=== PATIENT | male | born 1950 | race Caucasian/White ===

== ENCOUNTER → 2017-06-13 | Outpatient (CLI) | payer MEDICARE, BC ==
[2014-05-07 15:30] VITALS: BP 164/88
[~2017-06-13] MED LIST: GLUCOS-AMINE500 MG PO; MULTIPLE VITAMI1 CAP PO; VITAMIN C500 MG PO
== END ==
LOC: LAB 08:00
DX: R68.89 Other general symptoms and signs (principal)

== ENCOUNTER → 2017-07-04 | Outpatient (CLI) | payer MEDICARE, BC ==
[2014-05-07 15:30] VITALS: BP 164/88
[2017-07-04 07:27] LABS: EOS # 0.2 (0.04-0.40); EOS % 3.9 % (0.0-4.0); HEMATOCRIT 42.7 % (42.0-52.0); HEMOGLOBIN 14.3 g/dL (13.5-18.0); LYMPH# 1.6 (1.50-4.00); MEAN CELL VOLUME 88 fl (78-100); MEAN CORPUSCULAR HEMOGLOBIN 30 pg (27-31); MEAN CORPUSCULAR HGB CONC 34 g/dL (33-37); MEAN PLATELET VOLUME 10.5 fl (7.4-10.4); MONO # 0.5 (0.20-0.80); NEU # 2.7 (1.40-6.50); PLATELET COUNT 213 K/mm3 (130-400); RED BLOOD COUNT 4.83 M/mm3 (4.20-5.60); WHITE BLOOD COUNT 5.1 K/mm3 (4.8-10.8)
[2017-07-04 07:44] LABS: ALBUMIN 3.9 g/dL (3.5-5.0); BUN/CREATININE RATIO 17.7 (6.0-26.0); CALCIUM 8.6 mg/dL (8.4-10.2); POTASSIUM 4.3 mmol/L (3.6-5.0); TOTAL BILIRUBIN 0.4 mg/dL (0.2-1.3); TOTAL PROTEIN 7.1 g/dL (6.3-8.2)
== END ==
LOC: LAB 07:14
PROVIDERS: Nurse Practitioner Family
DX: Z12.5 Encounter for screening for malignant neoplasm of prostate (principal); I10 Essential (primary) hypertension; Z00.00 Encounter for general adult medical examination without abnormal findings; Z13.220 Encounter for screening for lipoid disorders

== ENCOUNTER → 2018-05-30 | Outpatient (CLI) | payer MEDICARE, BC ==
[~2018-05-30] VITALS: Ht 180.3 cm; Wt 104.1 kg
[~2018-05-30] MED LIST changes: +PRINIVIL10 M1 PO
[2018-05-30 09:59] LABS: EOS # 0.1 (0.04-0.40); EOS % 2.5 % (0.0-4.0); HEMATOCRIT 43.3 % (42.0-52.0); HEMOGLOBIN 14.6 g/dL (13.5-18.0); LYMPH# 1.6 (1.50-4.00); MEAN CELL VOLUME 90 fl (78-100); MEAN CORPUSCULAR HEMOGLOBIN 30 pg (27-31); MEAN CORPUSCULAR HGB CONC 34 g/dL (33-37); MEAN PLATELET VOLUME 10.7 fl (7.4-10.4); MONO # 0.5 (0.20-0.80); NEU # 3.3 (1.40-6.50); PLATELET COUNT 226 K/mm3 (130-400); RED BLOOD COUNT 4.83 M/mm3 (4.20-5.60); RED CELL DISTRIBUTION WIDTH 12.7 % (11.5-14.5); WHITE BLOOD COUNT 5.6 K/mm3 (4.8-10.8)
[2018-05-30 10:06] VITALS: BP 126/78
[2018-05-30 10:27] LABS: ALBUMIN 4.4 g/dL (3.5-5.0); CALCIUM 9.4 mg/dL (8.4-10.2); TOTAL BILIRUBIN 0.7 mg/dL (0.2-1.3); TOTAL PROTEIN 7.5 g/dL (6.3-8.2)
[2018-05-30 10:28] LABS: URINE APPEARANCE CLEAR; URINE BILIRUBIN NEGATIVE (NEGATIVE); URINE BLOOD NEGATIVE (NEGATIVE); URINE COLOR YELLOW; URINE GLUCOSE NEGATIVE (NEGATIVE); URINE KETONE NEGATIVE (NEGATIVE); URINE LEUKOCYTE ESTERASE NEGATIVE (NEGATIVE); URINE MUCUS PRESENT (NOT PRESENT); URINE NITRATE NEGATIVE (NEGATIVE); URINE PROTEIN(semi-quant) NEGATIVE (NEGATIVE); URINE UROBILINOGEN NORMAL (NORMAL); URINE WBC 0-1 /hpf (0-3)
[2018-05-30 11:13] LABS: ERYTHROCYTE SEDIMENTATION RATE 4 mm/hr (0-20)
[2018-05-31 02:37] LABS: TESTOSTERONE 800 ng/dL (221-716)
== END ==
LOC: LAB 09:23
PROVIDERS: Internal Medicine
DX: Z12.5 Encounter for screening for malignant neoplasm of prostate (principal); Z12.11 Encounter for screening for malignant neoplasm of colon; I10 Essential (primary) hypertension; N52.9 Male erectile dysfunction, unspecified; E78.2 Mixed hyperlipidemia; R20.2 Paresthesia of skin; I49.3 Ventricular premature depolarization

== ENCOUNTER 2019-01-28 10:05 | Emergency (ER) | payer MEDICARE, BC ==
[~2019-01-28] VITALS: Ht 175.3 cm; Wt 95.5 kg
[2019-01-28 10:27] LABS: EOS % 0.5 % (0.0-4.0); HEMOGLOBIN 14.8 g/dL (13.5-18.0); LYMPH# 1.3 (1.50-4.00); MEAN CELL VOLUME 87 fl (78-100); MEAN CORPUSCULAR HEMOGLOBIN 30 pg (27-31); MEAN CORPUSCULAR HGB CONC 34 g/dL (33-37); MEAN PLATELET VOLUME 10.2 fl (7.4-10.4); MONO # 0.7 (0.20-0.80); NEU # 4.3 (1.40-6.50); PLATELET COUNT 255 K/mm3 (130-400); RED BLOOD COUNT 4.94 M/mm3 (4.20-5.60); RED CELL DISTRIBUTION WIDTH 12.9 % (11.5-14.5); WHITE BLOOD COUNT 6.3 K/mm3 (4.8-10.8)
[2019-01-28 10:37] LABS: ALBUMIN 4.1 g/dL (3.4-4.8)
[2019-01-28 10:38] LABS: POTASSIUM 4.6 mmol/L (3.5-5.1)
[2019-01-28 10:39] LABS: CALCIUM 9.6 mg/dL (8.3-10.5)
[2019-01-28 10:40] LABS: TOTAL PROTEIN 7.2 g/dL (6.2-8.1)
[2019-01-28 10:42] LABS: TOTAL BILIRUBIN 0.4 mg/dL (0.2-1.2)
[2019-01-28 10:58] LABS: D-DIMER 0.43 mg/L FEU (0.15-0.50)
[2019-01-28 11:29] LABS: URINE WBC 0 /hpf (0-3)
[2019-01-28 11:38] LABS: URINE APPEARANCE CLEAR; URINE BILIRUBIN NEGATIVE (NEGATIVE); URINE BLOOD NEGATIVE (NEGATIVE); URINE COLOR YELLOW; URINE GLUCOSE NEGATIVE (NEGATIVE); URINE KETONE NEGATIVE (NEGATIVE); URINE LEUKOCYTE ESTERASE NEGATIVE (NEGATIVE); URINE NITRATE NEGATIVE (NEGATIVE); URINE PROTEIN(semi-quant) NEGATIVE (NEGATIVE); URINE UROBILINOGEN NORMAL (NORMAL)
[2019-01-28] MEDS ORDERED: KETOROLAC10 MG PO (12:14)
[2019-01-28 12:29] VITALS: BP 174/74
== END 2019-01-28 12:30 | disposition home or self-care (01) ==
LOC: ED 10:05
PROVIDERS: Family Medicine
DX: R10.9 Unspecified abdominal pain (principal); I10 Essential (primary) hypertension; Z98.890 Other specified postprocedural states
CPT/HCPCS: J1885

== ENCOUNTER 2019-07-03 19:07 | Emergency (ER) | payer MEDICARE, BC ==
[~2019-07-03] VITALS: Ht 180.3 cm; Wt 100.0 kg
[~2019-07-03 19:07] MED LIST changes: +KETOROLAC10 MG PO
[2019-07-03 19:32] LABS: EOS # 0.2 (0.04-0.40); EOS % 2.1 % (0.0-4.0); HEMATOCRIT 43.5 % (42.0-52.0); HEMOGLOBIN 14.6 g/dL (13.5-18.0); LYMPH# 2.4 (1.50-4.00); MEAN CELL VOLUME 89 fl (78-100); MEAN CORPUSCULAR HEMOGLOBIN 30 pg (27-31); MEAN CORPUSCULAR HGB CONC 34 g/dL (33-37); MEAN PLATELET VOLUME 10.3 fl (7.4-10.4); MONO # 0.8 (0.20-0.80); NEU # 4.7 (1.40-6.50); PLATELET COUNT 257 K/mm3 (130-400); RED BLOOD COUNT 4.88 M/mm3 (4.20-5.60); RED CELL DISTRIBUTION WIDTH 12.8 % (11.5-14.5)
[2019-07-03 19:43] LABS: ALBUMIN 4.4 g/dL (3.4-4.8); POTASSIUM 4.5 mmol/L (3.5-5.1)
[2019-07-03 19:46] LABS: TOTAL PROTEIN 7.4 g/dL (6.2-8.1)
[2019-07-03 19:47] LABS: TOTAL BILIRUBIN 0.4 mg/dL (0.2-1.2)
[2019-07-03 19:59] LABS: TROPONIN-I 0.08 ng/mL (<0.030)
[2019-07-03 20:33] LABS: URINE WBC 0 /hpf (0-3)
[2019-07-03 20:40] LABS: D-DIMER 0.84 mg/L FEU (0.15-0.50)
[2019-07-03 20:41] LABS: PH-URINE 6.5 (5.0 - 8.0); URINE APPEARANCE CLEAR; URINE BILIRUBIN NEGATIVE (NEGATIVE); URINE BLOOD NEGATIVE (NEGATIVE); URINE COLOR YELLOW; URINE GLUCOSE NEGATIVE (NEGATIVE); URINE KETONE NEGATIVE (NEGATIVE); URINE LEUKOCYTE ESTERASE NEGATIVE (NEGATIVE); URINE NITRATE NEGATIVE (NEGATIVE); URINE PROTEIN(semi-quant) NEGATIVE (NEGATIVE); URINE UROBILINOGEN NORMAL (NORMAL)
[2019-07-03 22:58] VITALS: BP 164/73
== END 2019-07-03 22:58 | disposition short-term general hospital (02) ==
LOC: ED 19:07
PROVIDERS: Nurse Practitioner Family
DX: N28.9 Disorder of kidney and ureter, unspecified (principal); R10.11 Right upper quadrant pain; R79.89 Other specified abnormal findings of blood chemistry; I10 Essential (primary) hypertension; Z87.891 Personal history of nicotine dependence
CPT/HCPCS: J1650; J1885; J2405; J7030; Q9967

== ENCOUNTER → 2019-07-16 | Outpatient (CLI) | payer MEDICARE, BC ==
[2019-07-03 22:58] VITALS: BP 164/73
== END ==
LOC: CARDREHAB 16:30
DX: G47.33 Obstructive sleep apnea (adult) (pediatric) (principal); G47.8 Other sleep disorders; G47.10 Hypersomnia, unspecified
CPT/HCPCS: G0399

== ENCOUNTER → 2019-10-02 | Outpatient (CLI) | payer MEDICARE, BC | LOC: AMSURD 15:17 | DX: R00.1 Bradycardia, unspecified (principal) ==

== ENCOUNTER → 2019-10-19 | Outpatient (CLI) | payer MEDICARE, BC | LOC: LAB 10:57 | DX: R00.1 Bradycardia, unspecified (principal) ==

== ENCOUNTER → 2019-10-23 | Outpatient (CLI) | payer MEDICARE, BC ==
[2019-10-19 11:18] LABS: POTASSIUM 5.2 mmol/L (3.5-5.1)
[2019-10-19 11:19] LABS: CALCIUM 9.6 mg/dL (8.3-10.5)
== END ==
LOC: RAD 08:29
PROVIDERS: Internal Medicine
DX: I67.82 Cerebral ischemia (principal); G47.37 Central sleep apnea in conditions classified elsewhere; R00.1 Bradycardia, unspecified
CPT/HCPCS: A9585

== ENCOUNTER → 2020-03-21 | Emergency (ER) | payer MEDICARE, BC ==
[2020-03-17 14:04] VITALS: BP 173/74
[~2020-03-21] MED LIST changes: +ATORVASTATIN CA40 MG PO; +FLOMAX0.4 MG PO; +GOOD SENSE ASPI81 M1 PO; +LOSARTAN POTASS25 MG PO; +PRILOSEC 20MG20 MG PO
== END ==
LOC: ED 13:33
DX: R69 Illness, unspecified (principal); Z53.21 Procedure and treatment not carried out due to patient leaving prior to being seen by health care provider; Z79.82 Long term (current) use of aspirin

== ENCOUNTER → 2020-03-22 | Outpatient (CLI) | payer MEDICARE, BC ==
[2020-03-17 14:04] VITALS: BP 173/74
--- NOTE | 2020-03-22 11:01 | NUR ---
48 HOUR HOLTER MONITOR PLACED ON PATIENT'S CHEST WITH BATTERY IN PLACE AND TURNED ON TO READ. INSTRUCTIONS GIVEN TO PATIENT AND WILL RETURN ON TUESDAY TO HAVE IT REMOVED.
== END ==
LOC: AMSURD 10:35
DX: R00.1 Bradycardia, unspecified (principal)

== ENCOUNTER → 2020-04-22 | Outpatient (CLI) | payer MEDICARE, BC ==
[2020-03-17 14:04] VITALS: BP 173/74
== END ==
LOC: LAB 11:31
DX: K90.9 Intestinal malabsorption, unspecified (principal); R00.1 Bradycardia, unspecified

== ENCOUNTER → 2020-06-02 | Outpatient (CLI) | payer MEDICARE, BC ==
[2020-03-17 14:04] VITALS: BP 173/74
[2020-06-03 02:37] LABS: FOLATE (FOLIC ACID) 16.6 ng/mL (7.0-31.4)
== END ==
LOC: LAB 08:05
PROVIDERS: Psychiatry & Neurology Neurology
DX: G62.9 Polyneuropathy, unspecified (principal); Z79.899 Other long term (current) drug therapy

== ENCOUNTER → 2020-06-05 | Outpatient (CLI) | payer MEDICARE, BC ==
[2020-03-17 14:04] VITALS: BP 173/74
== END ==
LOC: RAD 16:42
DX: R41.3 Other amnesia (principal)
CPT/HCPCS: A9585

== ENCOUNTER → 2020-12-26 | Outpatient (CLI) | payer MEDICARE, BC ==
[2020-12-26 11:50] LABS: BASO # 0.05 (0.02-0.10); EOS % 1.3 % (0.0-4.0); HEMATOCRIT 44.2 % (42.0-52.0); HEMOGLOBIN 14.6 g/dL (13.5-18.0); LYMPH# 1.42 (1.50-4.00); MEAN CELL VOLUME 94 fl (78-100); MEAN CORPUSCULAR HEMOGLOBIN 31 pg (27-31); MEAN CORPUSCULAR HGB CONC 33 g/dL (33-37); MEAN PLATELET VOLUME 9.9 fl (7.4-10.4); MONO # 0.62 (0.20-0.80); NEU # 5.28 (1.40-6.50); PLATELET COUNT 238 K/mm3 (130-400); RED BLOOD COUNT 4.72 M/mm3 (4.20-5.60); RED CELL DISTRIBUTION WIDTH 12.5 % (11.5-14.5); WHITE BLOOD COUNT 7.5 K/mm3 (4.8-10.8)
[2020-12-26 12:02] LABS: ALBUMIN 4.2 g/dL (3.4-4.8); POTASSIUM 5.5 mmol/L (3.5-5.1)
[2020-12-26 12:03] LABS: CALCIUM 9.3 mg/dL (8.3-10.5)
[2020-12-26 12:04] LABS: TOTAL PROTEIN 7.2 g/dL (6.2-8.1)
[2020-12-26 12:06] LABS: TOTAL BILIRUBIN 0.6 mg/dL (0.2-1.2)
[2020-12-26 13:19] LABS: ERYTHROCYTE SEDIMENTATION RATE 3 mm/hr (0-20)
== END ==
LOC: LAB 11:33
PROVIDERS: Internal Medicine
DX: Z12.5 Encounter for screening for malignant neoplasm of prostate (principal); I25.10 Atherosclerotic heart disease of native coronary artery without angina pectoris

== ENCOUNTER → 2021-01-09 | Outpatient (CLI) | payer MEDICARE, BC ==
[2021-01-09 09:28] LABS: POTASSIUM 4.5 mmol/L (3.5-5.1)
[2021-01-09 09:29] LABS: CALCIUM 9.8 mg/dL (8.3-10.5)
== END ==
LOC: LAB 07:12
PROVIDERS: Internal Medicine
DX: I10 Essential (primary) hypertension (principal)

== ENCOUNTER → 2021-02-02 | Outpatient (CLI) | payer MEDICARE, BC ==
[2021-02-02 17:43] LABS: POTASSIUM 4.4 mmol/L (3.5-5.1)
[2021-02-02 17:57] LABS: CALCIUM 9.5 mg/dL (8.3-10.5)
== END ==
LOC: LAB 17:16
PROVIDERS: Internal Medicine
DX: E87.5 Hyperkalemia (principal)

== ENCOUNTER → 2021-05-05 | Outpatient (CLI) | payer MEDICARE, BC ==
[2021-05-05 12:21] LABS: ALBUMIN 4.1 g/dL (3.4-4.8); POTASSIUM 4.8 mmol/L (3.5-5.1)
[2021-05-05 12:22] LABS: CALCIUM 9.3 mg/dL (8.3-10.5)
[2021-05-05 12:25] LABS: TOTAL BILIRUBIN 0.5 mg/dL (0.2-1.2)
== END ==
LOC: LAB 11:19
PROVIDERS: Internal Medicine
DX: I25.10 Atherosclerotic heart disease of native coronary artery without angina pectoris (principal)

== ENCOUNTER → 2021-12-22 | Outpatient (CLI) | payer MEDICARE, BC ==
[2021-12-22 09:50] LABS: BASO # 0.04 K/mm3 (0.02-0.10); EOS # 0.09 K/mm3 (0.04-0.40); EOS % 1.9 % (0.0-4.0); HEMATOCRIT 46.2 % (42.0-52.0); HEMOGLOBIN 15.4 g/dL (13.5-18.0); LYMPH# 1.27 K/mm3 (1.50-4.00); MEAN CELL VOLUME 91 fl (78-100); MEAN CORPUSCULAR HEMOGLOBIN 30 pg (27-31); MEAN CORPUSCULAR HGB CONC 33 g/dL (33-37); MEAN PLATELET VOLUME 10.1 fl (7.4-10.4); MONO # 0.55 K/mm3 (0.20-0.80); NEU # 2.87 K/mm3 (1.40-6.50); PLATELET COUNT 239 K/mm3 (130-400); RED BLOOD COUNT 5.09 M/mm3 (4.20-5.60); RED CELL DISTRIBUTION WIDTH 12.5 % (11.5-14.5); WHITE BLOOD COUNT 4.8 K/mm3 (4.8-10.8)
[2021-12-22 09:57] LABS: POTASSIUM 5.2 mmol/L (3.5-5.1)
[2021-12-22 09:58] LABS: ALBUMIN 4.2 g/dL (3.4-4.8)
[2021-12-22 09:59] LABS: CALCIUM 9.7 mg/dL (8.3-10.5)
[2021-12-22 10:00] LABS: TOTAL PROTEIN 7.5 g/dL (6.2-8.1)
[2021-12-22 10:02] LABS: TOTAL BILIRUBIN 0.4 mg/dL (0.2-1.2)
[2021-12-22 10:07] LABS: MAGNESIUM 2.1 mg/dL (1.60-2.60)
== END ==
LOC: LAB 09:35
PROVIDERS: Internal Medicine
DX: I25.10 Atherosclerotic heart disease of native coronary artery without angina pectoris (principal); Z12.11 Encounter for screening for malignant neoplasm of colon; Z12.5 Encounter for screening for malignant neoplasm of prostate; I10 Essential (primary) hypertension; G47.33 Obstructive sleep apnea (adult) (pediatric); K90.9 Intestinal malabsorption, unspecified

== ENCOUNTER 2022-08-19 13:49 | Emergency (ER) | payer MEDICARE, BC ==
[~2022-08-19] VITALS: Ht 180.3 cm; Wt 102.7 kg
[2022-08-19] MEDS ORDERED: DONEPEZIL HCL10 MG PO (14:12)
[2022-08-19] MEDS ORDERED: KETOROLAC10 MG PO (15:43)
[2022-08-19 16:27] VITALS: BP 182/82
== END 2022-08-19 16:30 | disposition home or self-care (01) ==
LOC: ED 13:49
DX: S01.512A Laceration without foreign body of oral cavity, initial encounter (principal); I10 Essential (primary) hypertension; Z87.891 Personal history of nicotine dependence; Z28.310 Unvaccinated for COVID-19; W26.8XXA Contact with other sharp object(s), not elsewhere classified, initial encounter

== ENCOUNTER → 2022-08-31 | Outpatient (CLI) | payer MEDICARE, BC ==
[~2022-08-31] MED LIST changes: +DONEPEZIL HCL10 MG PO
[2022-08-31 10:50] LABS: BASO # 0.04 K/mm3 (0.02-0.10); EOS # 0.13 K/mm3 (0.04-0.40); EOS % 1.9 % (0.0-4.0); HEMATOCRIT 43.9 % (42.0-52.0); HEMOGLOBIN 14.5 g/dL (13.5-18.0); LYMPH# 1.41 K/mm3 (1.50-4.00); MEAN CELL VOLUME 95 fl (78-100); MEAN CORPUSCULAR HEMOGLOBIN 31 pg (27-31); MEAN CORPUSCULAR HGB CONC 33 g/dL (33-37); MEAN PLATELET VOLUME 10.6 fl (7.4-10.4); PLATELET COUNT 208 K/mm3 (130-400); RED BLOOD COUNT 4.64 M/mm3 (4.20-5.60); RED CELL DISTRIBUTION WIDTH 13.2 % (11.5-14.5); WHITE BLOOD COUNT 6.9 K/mm3 (4.8-10.8)
[2022-08-31 10:52] LABS: ALBUMIN 4.2 g/dL (3.4-4.8)
[2022-08-31 10:53] LABS: CALCIUM 9.6 mg/dL (8.3-10.5)
[2022-08-31 10:54] LABS: TOTAL PROTEIN 7.1 g/dL (6.2-8.1)
[2022-08-31 10:56] LABS: TOTAL BILIRUBIN 0.5 mg/dL (0.2-1.2)
[2022-08-31 11:00] LABS: MAGNESIUM 1.98 mg/dL (1.60-2.60)
== END ==
LOC: LAB 10:30
PROVIDERS: Internal Medicine
DX: I10 Essential (primary) hypertension (principal); I25.10 Atherosclerotic heart disease of native coronary artery without angina pectoris; G47.33 Obstructive sleep apnea (adult) (pediatric); K90.9 Intestinal malabsorption, unspecified; G30.1 Alzheimer's disease with late onset

== ENCOUNTER → 2022-09-02 | Outpatient (CLI) | payer MEDICARE, BC | LOC: RAD 09:06 | DX: Z13.6 Encounter for screening for cardiovascular disorders (principal); I77.811 Abdominal aortic ectasia ==

== ENCOUNTER 2023-01-05 13:28 | Outpatient (RCR) | payer MEDICARE, BC ==
[~2023-01-05 13:28] MED LIST changes: +BACLOFEN5 MG PO; +ISOSORBIDE MONO60 M2 PO; +MULTIVITAMIN PO; +NORCO 325 MG-7.1 TA1 PO; +PREDNISONE20 M1 PO; +PREVAGEN; +TYLENOL325 M1; +VITAMIN C PUR1000 MG PO
== END 2023-01-13 | disposition home or self-care (01) ==
LOC: PT
DX: M47.816 Spondylosis without myelopathy or radiculopathy, lumbar region (principal)

== ENCOUNTER 2023-02-13 21:40 | Emergency (ER) | payer MEDICARE, BC ==
[~2023-02-13] VITALS: Ht 180.3 cm; Wt 96.4 kg
[2023-02-13 22:37] LABS: BASO # 0.02 K/mm3 (0.02-0.10); EOS # 0.12 K/mm3 (0.04-0.40); EOS % 2.1 % (0.0-4.0); HEMATOCRIT 40.5 % (42.0-52.0); HEMOGLOBIN 12.7 g/dL (13.5-18.0); LYMPH# 1.57 K/mm3 (1.50-4.00); MEAN CELL VOLUME 102 fl (78-100); MEAN CORPUSCULAR HEMOGLOBIN 32 pg (27-31); MEAN CORPUSCULAR HGB CONC 31 g/dL (33-37); MEAN PLATELET VOLUME 10.1 fl (7.4-10.4); MONO # 0.62 K/mm3 (0.20-0.80); PLATELET COUNT 180 K/mm3 (130-400); RED BLOOD COUNT 3.99 M/mm3 (4.20-5.60); RED CELL DISTRIBUTION WIDTH 13.4 % (11.5-14.5); WHITE BLOOD COUNT 5.6 K/mm3 (4.8-10.8)
[2023-02-13 22:38] LABS: ALBUMIN 3.9 g/dL (3.4-4.8); POTASSIUM 3.9 mmol/L (3.5-5.1)
[2023-02-13 22:44] LABS: TOTAL BILIRUBIN 0.4 mg/dL (0.2-1.2); TOTAL PROTEIN 6.5 g/dL (6.2-8.1)
[2023-02-13 22:51] LABS: TROPONIN-I 0.271 ng/mL (<0.030)
[2023-02-13] MEDS ORDERED: TYLENOL EXTRA500 M3 PO (23:02)
[2023-02-13] MEDS ORDERED: SENNA8.6 M1 PO (23:04)
[2023-02-14 00:02] LABS: PARTIAL THROMBOPLASTIN TIME 27.2 SECONDS (21.0-32.0); PROTHROMBIN TIME 11.8 SECONDS (9.0-12.0)
[2023-02-14 00:50] VITALS: BP 151/75
== END 2023-02-14 00:50 | disposition short-term general hospital (02) ==
LOC: ED 21:40
PROVIDERS: Family Medicine
DX: M54.2 Cervicalgia (principal); I25.10 Atherosclerotic heart disease of native coronary artery without angina pectoris; R79.89 Other specified abnormal findings of blood chemistry; Z28.310 Unvaccinated for COVID-19
CPT/HCPCS: J1644

== ENCOUNTER → 2023-05-06 | Outpatient (CLI) | payer MEDICARE, BC ==
[~2023-05-06] VITALS: Ht 180.3 cm; Wt 104.3 kg
[~2023-05-06] MED LIST changes: +SENNA8.6 M1 PO; +TYLENOL EXTRA500 M3 PO
== END ==
LOC: CARDREHAB 08:00
DX: R00.1 Bradycardia, unspecified (principal)
CPT/HCPCS: A9500; J2785

== ENCOUNTER 2023-10-31 12:45 | Outpatient (RCR) | payer MEDICARE, BC ==
[2023-11-05] MEDS ORDERED: MELOXICAM15 MG PO (10:55)
== END 2023-11-13 ==
LOC: PT
DX: S29.012D Strain of muscle and tendon of back wall of thorax, subsequent encounter (principal); X58.XXXD Exposure to other specified factors, subsequent encounter

== ENCOUNTER → 2024-07-27 | Outpatient (CLI) | payer MEDICARE, BC ==
[~2024-07-27] MED LIST changes: +MELOXICAM15 MG PO
[2024-07-27 14:43] LABS: BASO # 0.02 K/mm3 (0.02-0.10); EOS % 1.8 % (0.0-4.0); HEMATOCRIT 43.3 % (42.0-52.0); HEMOGLOBIN 14.2 g/dL (13.5-18.0); LYMPH# 1.07 K/mm3 (1.50-4.00); MEAN CELL VOLUME 94 fl (78-100); MEAN CORPUSCULAR HEMOGLOBIN 31 pg (27-31); MEAN CORPUSCULAR HGB CONC 33 g/dL (33-37); MEAN PLATELET VOLUME 9.9 fl (7.4-10.4); MONO # 0.53 K/mm3 (0.20-0.80); NEU # 3.74 K/mm3 (1.40-6.50); PLATELET COUNT 233 K/mm3 (130-400); RED BLOOD COUNT 4.63 M/mm3 (4.20-5.60); RED CELL DISTRIBUTION WIDTH 12.8 % (11.5-14.5); WHITE BLOOD COUNT 5.5 K/mm3 (4.8-10.8)
[2024-07-27 14:46] LABS: ALBUMIN 4.3 g/dL (3.4-4.8)
[2024-07-27 14:47] LABS: CALCIUM 9.6 mg/dL (8.3-10.5)
[2024-07-27 14:49] LABS: TOTAL PROTEIN 7.5 g/dL (6.2-8.1)
[2024-07-27 14:51] LABS: TOTAL BILIRUBIN 0.5 mg/dL (0.2-1.2)
[2024-07-27 14:56] LABS: MAGNESIUM 1.94 mg/dL (1.60-2.60)
== END ==
LOC: LAB 14:21
PROVIDERS: Internal Medicine
DX: I10 Essential (primary) hypertension (principal); I25.10 Atherosclerotic heart disease of native coronary artery without angina pectoris; K90.9 Intestinal malabsorption, unspecified; R73.9 Hyperglycemia, unspecified